=== PATIENT | female | born 1980 | race Hispanic/Latino ===

== ENCOUNTER 2017-02-03 15:18 | Inpatient (IN) | payer BC ==
--- NOTE | 2017-02-03 16:53 | ED PDOC ---
Arrival/HPI - General Chief Complaint: Medical Clearance Time Seen by Provider: 02/03/17 16:44 - History of Present Illness Narrative History of Present Illness (Text): 02/03/17 16:50 36-year-old female with a history of alcohol use, presents emergency department stating that she may be going into alcohol withdrawal. Patient states that she has upper extremity tremors. States that she usually takes Librium for her symptoms, but she has not taking any Librium for this episode. Patient states her last drink was early this morning. Denies any suicidal or homicidal ideations. Denies any other complaints. Past Medical History - Provider Review Nursing Documentation Reviewed: Yes - Infectious Disease Hx of Infectious Diseases: None - Reproductive Menopause: No - Cardiac Hx Hypertension: Yes - Psychiatric Hx Substance Use: Yes - Anesthesia Hx Anesthesia: Yes Hx Anesthesia Reactions: No Family/Social History Family/Social History: Unknown Family HX Smoking Status: Current Some Days Smoker Hx Alcohol Use: Yes Frequency of alcohol use: Daily Hx Substance Use: Yes Substance used: cocaine Allergies/Home Meds Allergies/Adverse Reactions: Allergies No Known Allergies Allergy (Verified 02/03/17 16:31) Home Medications: Home Meds Medication Instructions Recorded Confirmed ALPRAZolam [Xanax] 1 mg PO BID 02/03/17 02/03/17 Desvenlafaxine Succinate [Pristiq] 50 mg PO DAILY 02/03/17 02/03/17 Hctz 25 25 mg PO DAILY 02/03/17 02/03/17 Physical Exam - Physical Exam Narrative Physical Exam (Text): - Review of Systems Constitutional: Normal. absent: Fatigue, Weight Change, Fevers Eyes: Normal ENT: denies sore throat, denies tristhmus Respiratory: Normal. absent: SOB, Cough, Sputum Cardiovascular: absent: Chest Pain, Palpitations, Syncope Gastrointestinal: Normal. absent: Abdominal Pain, Diarrhea, Nausea, Vomiting Genitourinary: Normal. absent: Dysuria, Frequency, Hematuria, vaginal bleeding Musculoskeletal: Normal. absent: Arthralgias, Back Pain, Neck Pain Skin: no rashes, no erythema Neurological: absent: Focal Weakness Endocrine: Normal Hemo/Lymphatic: Normal Psychiatric: Possible withdrawal. No suicidal or homicidal ideations Physical exam Patient appears age appropriate in no distress, speaking full sentences without difficulty - Systems Exam Head: Present: Atraumatic, Normocephalic Pupils: Present: PERRL Extroacular Muscles: Present: EOMI Conjunctiva: Present: Normal Mouth: Present: Moist Mucous Membranes Neck: Present: Normal Range of Motion. No: MIDLINE TENDERNESS, Paraspinal Tenderness Respiratory/Chest: Present: Clear to Auscultation, Good Air Exchange. No: Respiratory Distress, Accessory Muscle Use, Tachypneic Cardiovascular: Present: Regular Rate and Rhythm, Normal S1, S2, Peripheal Pulses Present. No: Murmurs Abdomen: Present: Normal Bowel Sounds. No: Tenderness, Distention, Peritoneal Signs, Rebound, Guarding Back: Present: Normal Inspection. No: Midline Tenderness, Paraspinal Tenderness Upper Extremity: Present: Bilateral upper extremity tremors. No: Cyanosis, Edema Lower Extremity: Present: Normal Inspection. No: Edema Neurological: Present: GCS=15, Speech Normal, cranial nerves II through XII fully intact with no cerebellar abnormality, neurosensory fully intact. No focal neurological deficits. Skin: Present: Warm, Dry, Normal Color. No: Rashes Lymphatic: Present: OX3, NI, NC Psychiatric: Present: Alert, Oriented x 3, Normal Insight, Normal Concentration Vital Signs Reviewed: Yes Vital Signs Temp Pulse Resp BP Pulse Ox 02/03/17 16:26 98.7 F 112 H 20 162/94 H 99 Temperature: Afebrile Blood Pressure: Hypertensive Pulse: Tachycardic Respiratory Rate: Normal Appearance: Positive for: Non-Toxic, Comfortable Pain Distress: None Mental Status: Positive for: Alert and Oriented X 3 Medical Decision Making ED Course and Treatment: 02/03/17 16:52 36-year-old female presents the ER with alcohol withdrawal symptoms. On examination, patient is tremulous, tachycardic, hypertensive. Ativan and banana bag ordered. 02/03/17 17:[address] Arevalo, agrees with remote tele admission for alcohol withdrawal pt aware of and agrees with plan EKG interpreted by ER physician. Sinus tach. No ST-segment elevations. Normal intervals. - Medication Orders Current Medication Orders: Folic Acid 1 mg/ Thiamine HCl 100 mg/ Multivitamins/Vitamin C 10 ml/ Dextrose 1 ,011.2 mls @ 500 mls/hr IV .Q2H2M JOSEE Discontinued Medications Lorazepam (Ativan) 2 mg IVP ONCE ONE Stop: 02/03/17 16:47 Disposition/Present on Arrival - Present on Arrival Any Indicators Present on Arrival: No History of DVT/PE: No History of Uncontrolled Diabetes: No Urinary Catheter: No History of Decub. Ulcer: No History Surgical Site Infection Following: None - Disposition Have Diagnosis and Disposition been Completed?: Yes Diagnosis: Alcohol withdrawal Disposition: HOSPITALIZED Disposition Time: 17:04 Patient Plan: Admission Condition: FAIR
[2017-02-03] MEDS ORDERED: Folic Acid 1 MG, Thiamine 100 MG, Multivitamin (MVI) 10 ML in Dextrose 5% In Water 1,00... IV SCH (17:00)
[2017-02-03 18:01] LABS: ADD MANUAL DIFF? NO; BASO # 0.06 K/mm3 (0.0-2.0); BASO % 0.7 % (0.0-3.0); EOS # 0.1 (0.0-0.7); EOS % 0.7 % (1.5-5.0); GRAN # 6.42 (1.4-6.5); GRAN % 70.3 % (50.0-68.0); HEMATOCRIT 37.8 % (36.0-48.0); LYMPH # 1.9 (1.2-3.4); LYMPH % 20.7 % (22.0-35.0); MEAN CELL VOLUME 89.2 fL (80.0-105.0); MEAN CORPUSCULAR HEMOGLOBIN 31.1 pg (25.0-35.0); MEAN CORPUSCULAR HGB CONC 34.9 g/dl (31.0-37.0); MEAN PLATELET VOLUME 9.1 fl (7.0-11.0); MONO # 0.7 (0.1-0.6); MONO % 7.6 % (1.0-6.0); PLATELET COUNT 257 10^3/uL (120.0-450.0); RED CELL DISTRIBUTION WIDTH 14.5 % (11.5-14.5); WHITE BLOOD COUNT 9.1 10^3/ul (4.5-11.0)
[2017-02-03 18:08] LABS: ALB/GLOB RATIO 1.1 (1.1-1.8); ALKALINE PHOSPHATASE 77 U/L (38-133); ALT/SGPT 44 U/L (7-56); AST/SGOT 59 U/L (15-39); BILIRUBIN,TOTAL 0.8 mg/dL (0.2-1.3); BLOOD UREA NITROGEN 9 mg/dL (7-21); CALCIUM 9.9 mg/dL (8.4-10.5); CARBON DIOXIDE 24 mmol/L (21-33); CHLORIDE 101 mmol/L (98-107); GFR AFRICAN-AMERICAN > 60; GLUCOSE,RANDOM 62 mg/dL (70-110); POTASSIUM 4.5 mmol/L (3.6-5.0); SODIUM 137 mmol/L (132-148); TOTAL PROTEIN 8.9 g/dL (5.8-8.3)
--- NOTE | 2017-02-03 19:05 | CP.PCM.HP ---
<Leonard Dominguez - Last Filed: 02/03/17 18:59> History of Present Illness - History of Present Illness History of Present Illness: CC: Alcohol withdrawals HPI: Patient is a 36 y/o F wtih PMHX of HTN, HLD, and depression who presents with complaint of alcohol withdrawals. She states she had her last drink this morning and has recently been drinking a case of beer a days. She says in the past she has had withdrawals and was hospitalized somewhere in [place] but denies any seizures. She states she tried weaning herself and was prescribed librium in the past by her PMD. She reports upper extremity shakes, light headedness, headache, nausea, but no vomiting or seizures. She self reports past cocaine use. PMD: Mari[facility] Past medical hx: htn, hld, depression Past surgical hx: appendix, LEEP Family hx: denies Social hx: lives alone, case of beer daily, cocaine use, pack a day smoker allergies: KNDA Meds: Pristiq 50mg HCTZ 25mg Simvastatin Present on Admission - Present on Admission Any Indicators Present on Admission: No Review of Systems - Constitutional Constitutional: Chills, Headache. absent: Fever - EENT Eyes: absent: Change in Vision Ears: absent: Decreased Hearing Nose/Mouth/Throat: absent: Dysphagia - Cardiovascular Cardiovascular: absent: Chest Pain, Dyspnea, Edema, Palpitations - Respiratory Respiratory: absent: Cough, Dyspnea - Gastrointestinal Gastrointestinal: Nausea. absent: Abdominal Pain, Cramping, Diarrhea, Vomiting - Genitourinary Genitourinary: absent: Dysuria - Musculoskeletal Musculoskeletal: absent: Muscle Weakness, Numbness, Tingling - Integumentary Integumentary: absent: Lesions, Rash, Wounds - Neurological Neurological: Abnormal Movements, Disequilibrium, Headaches - Psychiatric Psychiatric: Depression. absent: Anxiety, Suicidal Ideation - Endocrine Endocrine: Flushing. absent: Fatigue, Palpitations Past Patient History - Infectious Disease Hx of Infectious Diseases: None - Past Social History Smoking Status: Light Smoker < 10 Cigarettes Daily Alcohol: > 2 Drinks/Day Drugs: Cocaine Home Situation {Lives}: Alone - CARDIAC Hx Hypertension: Yes - PSYCHIATRIC Hx Substance Use: Yes - ANESTHESIA Hx Anesthesia: Yes Hx Anesthesia Reactions: No Meds Allergies/Adverse Reactions: Allergies Allergy/AdvReac Type Severity Reaction Status Date / Time No Known Allergies Allergy Verified 02/03/17 16:31 Physical Exam - Constitutional Appears: Older Than Stated Age, Agitated - Head Exam Head Exam: ATRAUMATIC, NORMOCEPHALIC - Eye Exam Eye Exam: Conjunctival injection, EOMI, Normal appearance, PERRL Pupil Exam: NORMAL ACCOMODATION, PERRL - ENT Exam ENT Exam: Mucous Membranes Moist, Normal Oropharynx - Respiratory Exam Respiratory Exam: Clear to Auscultation Bilateral, NORMAL BREATHING PATTERN. absent: Decreased Breath Sounds, Rhonchi, Wheezes - Cardiovascular Exam Cardiovascular Exam: Tachycardia, +S1, +S2. absent: Gallop, Rubs, Systolic Murmur - GI/Abdominal Exam GI & Abdominal Exam: Normal Bowel Sounds, Soft. absent: Guarding, Tenderness - Rectal Exam Rectal Exam: Deferred - Extremities Exam Extremities exam: Positive for: normal capillary refill, normal inspection, pedal pulses present. Negative for: pedal edema, tenderness Additional comments: aterixis - Back Exam Back exam: NORMAL INSPECTION. absent: rash noted, tenderness - Neurological Exam Neurological exam: Alert, CN II-XII Intact, Oriented x3, Reflexes Normal Additional comments: asterixis - Psychiatric Exam Psychiatric exam: Agitated, Anxious - Skin Skin Exam: Diaphoretic, Intact, Warm Results - Vital Signs Recent Vital Signs: Last Vital Signs Temp 98.7 F 02/03/17 16:26 Pulse 97 H 02/03/17 18:36 Resp 16 02/03/17 18:36 BP 136/96 H 02/03/17 18:03 Pulse Ox 96 02/03/17 18:36 - Labs Result Diagrams: 02/03/17 17:48 02/03/17 17:48 Labs: Laboratory Results - last 24 hr 02/03/17 17:48 WBC 9.1 RBC 4.24 Hgb 13.2 Hct 37.8 MCV 89.2 MCH 31.1 MCHC 34.9 RDW 14.5 Plt Count 257 MPV 9.1 Gran % 70.3 H Lymph % (Auto) 20.7 L [place] % (Auto) 7.6 H Eos % (Auto) 0.7 L Baso % (Auto) 0.7 Gran # 6.42 Lymph # 1.9 [place] # 0.7 H Eos # 0.1 Baso # 0.06 Sodium 137 Potassium 4.5 Chloride 101 Carbon Dioxide 24 Anion Gap 17 BUN 9 Creatinine 0.6 Est GFR ( Amer) > 60 Est GFR (Non-Af Amer) > 60 Random Glucose 62 L Calcium 9.9 Total Bilirubin 0.8 AST 59 H ALT 44 Alkaline Phosphatase 77 Total Protein 8.9 H Albumin 4.7 Globulin 4.2 Albumin/Globulin Ratio 1.1 Assessment & Plan - Assessment and Plan (Free Text) Assessment: 36 y/o F with PMHX of HTN, HLD, depression, and substance abuse presents with alcohol withdrawal symptoms. Plan: 1) Alcohol withdrawal * Start Libirum 25 mg Q8H * Ativan 2mg Q4H * Banana bag * PO multivitamin, thiamine, folic acid * ciwaa protocol * seizure precautions * fall precautions * advised on importance of cesssation 2) Hx of HTN * Hold HCTZ due to dehydration * heart healthy diet 3) Hx of HLD * Hold PO Statin 4) Hx of Depression * continue home Pristiq * assymptomatic at this time 5) Substance abuse * advised on importance of cessation * Nicotine patch TD 6) PPX: * Zofran * Protonix * Tylenol * SCD's Assessment and plan discussed with attending physician. <Irina GUILLAUME,Sherrill - Last Filed: 02/04/17 17:21> Results - Vital Signs Recent Vital Signs: Last Vital Signs Temp 98.1 F 02/04/17 06:00 Pulse 90 02/04/17 14:00 Resp 19 02/04/17 06:00 BP 132/91 H 02/04/17 11:30 Pulse Ox 99 02/04/17 06:00 - Labs Result Diagrams: 02/04/17 06:15 02/04/17 06:15 Labs: Laboratory Results - last 24 hr 02/03/17 02/04/17 17:48 06:15 WBC 9.1 7.7 RBC 4.24 4.04 Hgb 13.2 12.4 Hct 37.8 36.4 MCV 89.2 90.1 MCH 31.1 30.7 MCHC 34.9 34.1 RDW 14.5 14.3 Plt Count 257 246 MPV 9.1 9.3 Gran % 70.3 H 57.1 Lymph % (Auto) 20.7 L 31.3 [place] % (Auto) 7.6 H 8.4 H Eos % (Auto) 0.7 L 2.7 Baso % (Auto) 0.7 0.5 Gran # 6.42 4.42 Lymph # 1.9 2.4 [place] # 0.7 H 0.7 H Eos # 0.1 0.2 Baso # 0.06 0.04 Sodium 137 137 Potassium 4.5 3.5 L Chloride 101 103 Carbon Dioxide 24 26 Anion Gap 17 12 BUN 9 10 Creatinine 0.6 0.6 Est GFR ( Amer) > 60 > 60 Est GFR (Non-Af Amer) > 60 > 60 Random Glucose 62 L 120 H Hemoglobin A1c 5.5 Calcium 9.9 9.1 Total Bilirubin 0.8 0.9 AST 59 H 50 H ALT 44 41 Alkaline Phosphatase 77 55 Total Protein 8.9 H 7.4 Albumin 4.7 3.9 Globulin 4.2 3.5 Albumin/Globulin Ratio 1.1 1.1 TSH 3rd Generation 1.2 Attending/Attestation - Attestation I have personally seen and examined this patient.: Yes I have fully participated in the care of the patient.: Yes I have reviewed all pertinent clinical information: Yes Notes (Text): Patient was seen and examined with general medical practitioner .Agreed with resident assessment and plan. 36 yrs F wtih PMHX of HTN, HLD, and depression is admitted with alcohol withdrawal.Patient will be admitted in the hospital, we will start patient on IV hydration, thiamine.folic acid .We will monitor patient with ROMY Protocoal. The issue of ongoing alcohol abuse was discussed in detail with patient. Management plan was discussed in detail with patient Education was provided.
--- NOTE | 2017-02-03 21:35 | CARD ---
APPROVED REPORT EKG Measurement Heart [id number] <Conclusion> Normal sinus rhythm Right atrial enlargement Borderline ECG
[2017-02-03] MEDS: Folic Acid 1 MG, Thiamine 100 MG, Multivitamin (MVI) 10 ML in Dextrose 5% In Water 1,00... IV SCH (22:26)
[2017-02-04] MEDS: Folic Acid 1 MG, Thiamine 100 MG, Multivitamin (MVI) 10 ML in Dextrose 5% In Water 1,00... IV SCH ×2 (05:07→13:56)
[2017-02-04 06:46] LABS: ADD MANUAL DIFF? NO
[2017-02-04 06:55] LABS: BASO # 0.04 K/mm3 (0.0-2.0); BASO % 0.5 % (0.0-3.0); EOS # 0.2 (0.0-0.7); EOS % 2.7 % (1.5-5.0); GRAN # 4.42 (1.4-6.5); GRAN % 57.1 % (50.0-68.0); HEMATOCRIT 36.4 % (36.0-48.0); LYMPH # 2.4 (1.2-3.4); LYMPH % 31.3 % (22.0-35.0); MEAN CELL VOLUME 90.1 fL (80.0-105.0); MEAN CORPUSCULAR HEMOGLOBIN 30.7 pg (25.0-35.0); MEAN CORPUSCULAR HGB CONC 34.1 g/dl (31.0-37.0); MEAN PLATELET VOLUME 9.3 fl (7.0-11.0); MONO # 0.7 (0.1-0.6); MONO % 8.4 % (1.0-6.0); PLATELET COUNT 246 10^3/uL (120.0-450.0); RED CELL DISTRIBUTION WIDTH 14.3 % (11.5-14.5); WHITE BLOOD COUNT 7.7 10^3/ul (4.5-11.0)
[2017-02-04 07:19] LABS: ALB/GLOB RATIO 1.1 (1.1-1.8); ALKALINE PHOSPHATASE 55 U/L (38-133); ALT/SGPT 41 U/L (7-56); AST/SGOT 50 U/L (15-39); BILIRUBIN,TOTAL 0.9 mg/dL (0.2-1.3); BLOOD UREA NITROGEN 10 mg/dL (7-21); CALCIUM 9.1 mg/dL (8.4-10.5); CARBON DIOXIDE 26 mmol/L (21-33); CHLORIDE 103 mmol/L (98-107); GFR AFRICAN-AMERICAN > 60; GLUCOSE,RANDOM 120 mg/dL (70-110); POTASSIUM 3.5 mmol/L (3.6-5.0); SODIUM 137 mmol/L (132-148); TOTAL PROTEIN 7.4 g/dL (5.8-8.3)
[2017-02-04] MEDS ORDERED: Potassium Chloride 40 mEq/30 ml LIQ UD PO ONE (07:35)
[2017-02-04 08:46] VITALS: RESP 19; TEMP 98.1; O2SAT 99
[2017-02-04] MEDS ORDERED: Multivitamin With Minerals Tab PO SCH (10:00)
[2017-02-04] MEDS ORDERED: Pantoprazole 40 mg EC Tab PO SCH (10:00)
[2017-02-04] MEDS ORDERED: DESVENLAFAXINE SUCCINATE 50 MG PO SCH (10:00)
[2017-02-04 13:00] VITALS: BP 132/91
[2017-02-04 15:47] VITALS: PULSE 90
--- NOTE | 2017-02-04 16:51 | CP.PCM.PN ---
<Leonard Dominguez - Last Filed: 02/04/17 16:46> Subjective - Date & Time of Evaluation Date of Evaluation: 02/04/17 Time of Evaluation: 09:00 - Subjective Subjective: Dr. Dominguez PGY 1 Hospitalist Note Patient seen and evaluated at bedside. She is resting comfortably with family present. She denies any chest pain, SOb, nausea, vomiting, diarrhea, or dysuria. She reports her withdrawal symptoms are improving. She is somnolent however responsive. Per nursing, no adverse events over night. Objective - Vital Signs/Intake and Output Vital Signs (last 24 hours): Temp Pulse Resp BP Pulse Ox 98.1 F 90 19 132/91 H 99 02/04/17 06:00 02/04/17 14:00 02/04/17 06:00 02/04/17 11:30 02/04/17 06:00 Intake and Output: 02/04/17 02/04/17 06:59 18:59 Intake Total 120 480 Balance 120 480 - Medications Medications: Current Medications Acetaminophen (Tylenol 325mg Tab) 650 mg PO Q6 PRN PRN Reason: Fever >100.4 F Chlordiazepoxide (Librium) 10 mg PO Q8 JOSEE PRN Reason: Protocol Last Admin: 02/04/17 13:54 Dose: 10 mg Clonidine HCl (Catapres) 0.1 mg PO BID PRN PRN Reason: Systolic Blood Pressure Last Admin: 02/04/17 10:11 Dose: 0.1 mg Folic Acid (Folic Acid) 1 mg PO DAILY [facility] Last Admin: 02/04/17 09:58 Dose: 1 mg Folic Acid 1 mg/ Thiamine HCl 100 mg/ Multivitamins/Vitamin C 10 ml/ Dextrose 1 ,011.2 mls @ 100 mls/hr IV .Q10H7M [facility] Last Admin: 02/04/17 13:56 Dose: 100 mls/hr Ibuprofen (Motrin Tab) 400 mg PO Q6 PRN PRN Reason: Pain, Mild (1-3) Lorazepam (Ativan) 2 mg IVP Q4H PRN; Protocol PRN Reason: Symptoms of alcohol withdrawl Last Admin: 02/04/17 06:45 Dose: 2 mg Multivitamins/Minerals (Therapeutic-M Tab) 1 tab PO DAILY [facility] Last Admin: 02/04/17 09:58 Dose: 1 tab Nicotine (Nicoderm Cq) 1 patch TD DAILY [facility] Last Admin: 02/04/17 09:59 Dose: Not Given Non-Formulary Medication (Desvenlafaxine Succinate [Pristiq]) 50 mg PO DAILY [facility] Last Admin: 02/04/17 10:11 Dose: Not Given Ondansetron HCl (Zofran Inj) 4 mg IVP Q6 PRN PRN Reason: Nausea/Vomiting Pantoprazole Sodium (Protonix Ec Tab) 40 mg PO DAILY [facility] Last Admin: 02/04/17 09:58 Dose: 40 mg Thiamine HCl (Vitamin B1 Tab) 100 mg PO DAILY [facility] Last Admin: 02/04/17 09:58 Dose: 100 mg - Labs Labs: 02/04/17 06:15 02/04/17 06:15 - Constitutional Appears: Non-toxic, No Acute Distress - Head Exam Head Exam: ATRAUMATIC, NORMAL INSPECTION, NORMOCEPHALIC - Eye Exam Eye Exam: Conjunctival injection, EOMI, PERRL Pupil Exam: NORMAL ACCOMODATION, PERRL - ENT Exam ENT Exam: Mucous Membranes Moist - Neck Exam Neck Exam: Full ROM, Normal Inspection - Respiratory Exam Respiratory Exam: Clear to Ausculation Bilateral, NORMAL BREATHING PATTERN. absent: Rales, Rhonchi, Wheezes - Cardiovascular Exam Cardiovascular Exam: REGULAR RHYTHM, +S1, +S2. absent: Gallop, Rubs, Murmur - GI/Abdominal Exam GI & Abdominal Exam: Soft, Normal Bowel Sounds. absent: Tenderness - Extremities Exam Extremities Exam: Normal Capillary Refill, Normal Inspection. absent: Pedal Edema, Tenderness - Back Exam Back Exam: NORMAL INSPECTION. absent: rash noted, tenderness - Neurological Exam Neurological Exam: Alert, Awake, CN II-XII Intact, Oriented x3 Additional comments: slight asterixis somnolent - Psychiatric Exam Psychiatric exam: Flat Affect - Skin Skin Exam: Dry, Intact, Warm Assessment and Plan - Assessment and Plan (Free Text) Assessment: 36 y/o F with PMHX of HTN, HLD, depression, and substance abuse presents with alcohol withdrawal symptoms. Plan: 1) Alcohol withdrawal * Decrease Libirum to 10 mg Q8H * Ativan 2mg Q4H * Banana bag * PO multivitamin, thiamine, folic acid * ciwaa protocol * seizure precautions * fall precautions * advised on importance of cesssation 2) Hx of HTN * Hold HCTZ due to dehydration * Clonidine prn elevated BP * heart healthy diet 3) Hx of HLD * Hold PO Statin 4) Hx of Depression * continue home Pristiq * assymptomatic at this time 5) Substance abuse * advised on importance of cessation * Nicotine patch TD 6)electrolyte imbalance * potassium low this morning * replenish as needed * f/u repeat in AM 7) PPX: * Zofran * Protonix * Tylenol * SCD's Assessment and plan discussed with attending physician. <Irina GUILLAUME,Sherrill - Last Filed: 02/04/17 17:24> Objective - Vital Signs/Intake and Output Vital Signs (last 24 hours): Temp Pulse Resp BP Pulse Ox 98.1 F 90 19 132/91 H 99 02/04/17 06:00 02/04/17 14:00 02/04/17 06:00 02/04/17 11:30 02/04/17 06:00 Intake and Output: 02/04/17 02/04/17 06:59 18:59 Intake Total 120 480 Balance 120 480 - Labs Labs: 02/04/17 06:15 02/04/17 06:15 Attending/Attestation - Attestation I have personally seen and examined this patient.: Yes I have fully participated in the care of the patient.: Yes I have reviewed all pertinent clinical information, including history, physical exam and plan: Yes Notes (Text): Patient alcohol withdrawal were improving this morning , was feeling better, however this afternoon she was anxious, and left the hospital with out signing against medical advice.She was alert,awake and oriented.She is considered as discharge against medical advice.
--- NOTE | 2017-02-04 17:11 | CP.PCM.DIS ---
<Leonard Dominguez - Last Filed: 02/04/17 17:04> Provider - Provider Date of Admission: 02/03/17 17:04 Attending physician: Sherrill Arevalo MD Time Spent in preparation of Discharge (in minutes): 45 Hospital Course - Lab Results Lab Results: Most Recent Lab Values WBC 7.7 10^3/ul (4.5-11.0) 02/04/17 06:15 RBC 4.04 10^6/uL (3.5-6.1) 02/04/17 06:15 Hgb 12.4 gm/dL (12.0-16.0) 02/04/17 06:15 Hct 36.4 % (36.0-48.0) 02/04/17 06:15 MCV 90.1 fL (80.0-105.0) 02/04/17 06:15 MCH 30.7 pg (25.0-35.0) 02/04/17 06:15 MCHC 34.1 g/dl (31.0-37.0) 02/04/17 06:15 RDW 14.3 % (11.5-14.5) 02/04/17 06:15 Plt Count 246 10^3/uL (120.0-450.0) 02/04/17 06:15 MPV 9.3 fl (7.0-11.0) 02/04/17 06:15 Gran % 57.1 % (50.0-68.0) 02/04/17 06:15 Lymph % (Auto) 31.3 % (22.0-35.0) 02/04/17 06:15 [place] % (Auto) 8.4 % (1.0-6.0) H 02/04/17 06:15 Eos % (Auto) 2.7 % (1.5-5.0) 02/04/17 06:15 Baso % (Auto) 0.5 % (0.0-3.0) 02/04/17 06:15 Gran # 4.42 (1.4-6.5) 02/04/17 06:15 Lymph # 2.4 (1.2-3.4) 02/04/17 06:15 [place] # 0.7 (0.1-0.6) H 02/04/17 06:15 Eos # 0.2 (0.0-0.7) 02/04/17 06:15 Baso # 0.04 K/mm3 (0.0-2.0) 02/04/17 06:15 Sodium 137 mmol/L (132-148) 02/04/17 06:15 Potassium 3.5 mmol/L (3.6-5.0) L 02/04/17 06:15 Chloride 103 mmol/L (98-107) 02/04/17 06:15 Carbon Dioxide 26 mmol/L (21-33) 02/04/17 06:15 Anion Gap 12 (10-20) 02/04/17 06:15 BUN 10 mg/dL (7-21) 02/04/17 06:15 Creatinine 0.6 mg/dL (0.5-1.4) 02/04/17 06:15 Est GFR ( Amer) > 60 02/04/17 06:15 Est GFR (Non-Af Amer) > 60 02/04/17 06:15 Random Glucose 120 mg/dL (70-110) H 02/04/17 06:15 Hemoglobin A1c 5.5 % (4.2-6.5) 02/04/17 06:15 Calcium 9.1 mg/dL (8.4-10.5) 02/04/17 06:15 Total Bilirubin 0.9 mg/dL (0.2-1.3) 02/04/17 06:15 AST 50 U/L (15-39) H 02/04/17 06:15 ALT 41 U/L (7-56) 02/04/17 06:15 Alkaline Phosphatase 55 U/L (38-133) 02/04/17 06:15 Total Protein 7.4 g/dL (5.8-8.3) 02/04/17 06:15 Albumin 3.9 g/dL (3.0-4.8) 02/04/17 06:15 Globulin 3.5 gm/dL 02/04/17 06:15 Albumin/Globulin Ratio 1.1 (1.1-1.8) 02/04/17 06:15 TSH 3rd Generation 1.2 MIU/ml (0.46-4.68) 02/04/17 06:15 - Hospital Course Hospital Course: HPI: Patient is a 36 y/o F wtih PMHX of HTN, HLD, and depression who presents with complaint of alcohol withdrawals. She states she had her last drink this morning and has recently been drinking a case of beer a days. She says in the past she has had withdrawals and was hospitalized somewhere in [place] but denies any seizures. She states she tried weaning herself and was prescribed librium in the past by her PMD. She reports upper extremity shakes, light headedness, headache, nausea, but no vomiting or seizures. She self reports past cocaine use. Patient is a 36 y/o F who presented with alcohol withdrawals. The patient was admitted to the hospital and started on Librium and ativan taper. She remained overnight and was somnolent throughout the morning. PAtient was evaluated this morning and progress note written. In the evening, nurse paged to report patient was agitated and was pulling her IV line out and demanding to leave to smoke a cigarette, got dressed, and left before signing out AMA. Patient eloped from medical floor. This is a brief summary of the patient's stay at this facility. For more detail , see patient's full chart. Physical exam as corresponds with morning examination. - Date & Time of H&P Date of H&P: 02/03/17 Time of H&P: 18:59 Discharge Exam - Head Exam Head Exam: ATRAUMATIC, NORMAL INSPECTION, NORMOCEPHALIC - Eye Exam Eye Exam: Conjunctival injection, EOMI, PERRL Pupil Exam: NORMAL ACCOMODATION, PERRL - ENT Exam ENT Exam: Mucous Membranes Moist. absent: Normal Oropharynx (poor dentition) - Respiratory Exam Respiratory Exam: Clear to PA & Lateral, NORMAL BREATHING PATTERN. absent: Rales, Rhonchi, Wheezes - Cardiovascular Exam Cardiovascular Exam: REGULAR RHYTHM, +S1, +S2. absent: Gallop, Rubs, Systolic Murmur - GI/Abdominal Exam GI & Abdominal Exam: Normal Bowel Sounds, Soft. absent: Tenderness - Extremities Exam Extremities exam: normal capillary refill, normal inspection, pedal pulses present - Back Exam Back exam: NORMAL INSPECTION. absent: rash noted, tenderness - Neurological Exam Neurological exam: Alert, CN II-XII Intact, Oriented x3 - Psychiatric Exam Psychiatric exam: Flat Affect - Skin Skin Exam: Dry, Intact, Warm Discharge Plan - Follow Up Plan Condition: GOOD Disposition: AGAINST MEDICAL ADVICE <Irina GUILLAUME,Sherrill - Last Filed: 02/04/17 17:25> Provider - Provider Date of Admission: 02/03/17 17:04 Attending physician: Sherrill Arevalo MD Hospital Course - Lab Results Lab Results: Most Recent Lab Values WBC 7.7 10^3/ul (4.5-11.0) 02/04/17 06:15 RBC 4.04 10^6/uL (3.5-6.1) 02/04/17 06:15 Hgb 12.4 gm/dL (12.0-16.0) 02/04/17 06:15 Hct 36.4 % (36.0-48.0) 02/04/17 06:15 MCV 90.1 fL (80.0-105.0) 02/04/17 06:15 MCH 30.7 pg (25.0-35.0) 02/04/17 06:15 MCHC 34.1 g/dl (31.0-37.0) 02/04/17 06:15 RDW 14.3 % (11.5-14.5) 02/04/17 06:15 Plt Count 246 10^3/uL (120.0-450.0) 02/04/17 06:15 MPV 9.3 fl (7.0-11.0) 02/04/17 06:15 Gran % 57.1 % (50.0-68.0) 02/04/17 06:15 Lymph % (Auto) 31.3 % (22.0-35.0) 02/04/17 06:15 [place] % (Auto) 8.4 % (1.0-6.0) H 02/04/17 06:15 Eos % (Auto) 2.7 % (1.5-5.0) 02/04/17 06:15 Baso % (Auto) 0.5 % (0.0-3.0) 02/04/17 06:15 Gran # 4.42 (1.4-6.5) 02/04/17 06:15 Lymph # 2.4 (1.2-3.4) 02/04/17 06:15 [place] # 0.7 (0.1-0.6) H 02/04/17 06:15 Eos # 0.2 (0.0-0.7) 02/04/17 06:15 Baso # 0.04 K/mm3 (0.0-2.0) 02/04/17 06:15 Sodium 137 mmol/L (132-148) 02/04/17 06:15 Potassium 3.5 mmol/L (3.6-5.0) L 02/04/17 06:15 Chloride 103 mmol/L (98-107) 02/04/17 06:15 Carbon Dioxide 26 mmol/L (21-33) 02/04/17 06:15 Anion Gap 12 (10-20) 02/04/17 06:15 BUN 10 mg/dL (7-21) 02/04/17 06:15 Creatinine 0.6 mg/dL (0.5-1.4) 02/04/17 06:15 Est GFR ( Amer) > 60 02/04/17 06:15 Est GFR (Non-Af Amer) > 60 02/04/17 06:15 Random Glucose 120 mg/dL (70-110) H 02/04/17 06:15 Hemoglobin A1c 5.5 % (4.2-6.5) 02/04/17 06:15 Calcium 9.1 mg/dL (8.4-10.5) 02/04/17 06:15 Total Bilirubin 0.9 mg/dL (0.2-1.3) 02/04/17 06:15 AST 50 U/L (15-39) H 02/04/17 06:15 ALT 41 U/L (7-56) 02/04/17 06:15 Alkaline Phosphatase 55 U/L (38-133) 02/04/17 06:15 Total Protein 7.4 g/dL (5.8-8.3) 02/04/17 06:15 Albumin 3.9 g/dL (3.0-4.8) 02/04/17 06:15 Globulin 3.5 gm/dL 02/04/17 06:15 Albumin/Globulin Ratio 1.1 (1.1-1.8) 02/04/17 06:15 TSH 3rd Generation 1.2 MIU/ml (0.46-4.68) 02/04/17 06:15 Attending/Attestation - Attestation I have personally seen and examined this patient.: Yes I have fully participated in the care of the patient.: Yes I have reviewed all pertinent clinical information, including history, physical exam and plan: Yes Notes (Text): Patient alcohol withdrawal were improving this morning , was feeling better, however this afternoon she was anxious, and left the hospital with out signing against medical advice.She was alert,awake and oriented.She is considered as discharge against medical advice.
== END 2017-02-04 17:20 | disposition left against medical advice (07) | DRG 894 ==
LOC: ED 15:18 → ERH 17:04 → 3RSO 19:23
PROVIDERS: ADMIT Internal Medicine; ATTEND Internal Medicine
DX: F10.239 Alcohol dependence with withdrawal, unspecified (principal); I10 Essential (primary) hypertension; E78.5 Hyperlipidemia, unspecified; F17.210 Nicotine dependence, cigarettes, uncomplicated; F14.90 Cocaine use, unspecified, uncomplicated; R40.2412 Glasgow coma scale score 13-15, at arrival to emergency department; F32.89 Other specified depressive episodes; E86.0 Dehydration; R27.8 Other lack of coordination; E87.6 Hypokalemia

== ENCOUNTER 2017-02-04 17:50 | Emergency (ER) | payer BC ==
[2017-02-04 18:17] VITALS: BMI 23.0
[2017-02-04 18:36] VITALS: BP 136/107; PULSE 108; RESP 18; O2SAT 100
--- NOTE | 2017-02-04 18:45 | ED PDOC ---
Arrival/HPI - General Chief Complaint: Alcohol Ingestion Time Seen by Provider: 02/04/17 18:22 Historian: Patient - History of Present Illness Narrative History of Present Illness (Text): 02/04/17 18:39 36yo female with PMhx of hypertension, anxiety, alcohol abuse who present to ED for readmission. States shew as admitted her yesterday for alcohol withdrawal and she sign out AMA 15minutes [employer]. She denies any somatic complaint in ED. Past Medical History - Provider Review Nursing Documentation Reviewed: Yes - Infectious Disease Hx of Infectious Diseases: None - Cardiac Hx Hypertension: Yes - Pulmonary Other/Comment: smoker - Musculoskeletal/Rheumatological Hx Falls: No - Psychiatric Hx Substance Use: Yes Other/Comment: substance abuse; cocaine - Anesthesia Hx Anesthesia: Yes Hx Anesthesia Reactions: No Family/Social History - Physician Review Nursing Documentation Reviewed: Yes Family/Social History: Unknown Family HX Smoking Status: Current Some Days Smoker Hx Alcohol Use: Yes (last drink at 4am on 02/03/17) Hx Substance Use: Yes Substance used: cocaine Allergies/Home Meds Allergies/Adverse Reactions: Allergies No Known Allergies Allergy (Verified 02/04/17 18:17) Home Medications: Home Meds Medication Instructions Recorded Confirmed ALPRAZolam [Xanax] 1 mg PO BID 02/03/17 02/04/17 Desvenlafaxine Succinate [Pristiq] 50 mg PO DAILY 02/03/17 02/04/17 hydroCHLOROthiazide [Hydrodiuril] 25 mg PO DAILY 02/04/17 02/04/17 Review of Systems - Physician Review All systems were reviewed & negative as marked: Yes - Review of Systems Constitutional: Normal, Other (???Alcohol withdrawl) Eyes: Normal ENT: Normal Respiratory: Normal Cardiovascular: Normal Gastrointestinal: Normal Genitourinary Female: Normal Musculoskeletal: Normal Skin: Normal Neurological: Normal Endocrine: Normal Hemo/Lymphatic: Normal Psychiatric: Normal Physical Exam Vital Signs Reviewed: Yes Vital Signs Pulse Resp BP Pulse Ox 02/04/17 18:36 108 H 18 136/107 H 100 02/04/17 17:58 84 17 163/109 H 98 Temperature: Afebrile Blood Pressure: Hypertensive Pulse: Regular Respiratory Rate: Normal Appearance: Positive for: Well-Appearing, Non-Toxic, Comfortable Pain Distress: None Mental Status: Positive for: Alert and Oriented X 3 - Systems Exam Head: Present: Atraumatic, Normocephalic Pupils: Present: PERRL Extroacular Muscles: Present: EOMI Conjunctiva: Present: Normal Mouth: Present: Moist Mucous Membranes Neck: Present: Normal Range of Motion Respiratory/Chest: Present: Clear to Auscultation, Good Air Exchange. No: Respiratory Distress, Accessory Muscle Use Cardiovascular: Present: Regular Rate and Rhythm, Normal S1, S2. No: Murmurs Abdomen: Present: Normal Bowel Sounds. No: Tenderness, Distention, Peritoneal Signs Back: Present: Normal Inspection Upper Extremity: Present: Normal Inspection. No: Cyanosis, Edema Lower Extremity: Present: Normal Inspection. No: Edema Neurological: Present: GCS=15, CN II-XII Intact, Speech Normal Skin: Present: Warm, Dry, Normal Color. No: Rashes Psychiatric: Present: Alert, Oriented x 3, Normal Insight, Normal Concentration Medical Decision Making ED Course and Treatment: 02/04/17 18:41 Pt in ED for stated history. She was comfortable and in no distress in ED. No tremor was noted. Pt was on her cell phone. Case was DW Dr. Kelsi Arevalo who admitted pt in the Hospital. He states patient was not having withdrawal symptoms when he saw her today. States the plan was to DC her home this evening if she does not have any withdrawal symptoms in the Hospital. Patient however eloped from the Hospital before she was DC because she wanted to go and smoke. He requested that patient be DC home. Pt was mildy hypertension in triage, but reports history of HTN. She have medication and was advised to take her medication as was rx. Advised to f/u with her PMD/ AA. TRT ED for any new or worsening symptoms. Disposition/Present on Arrival - Present on Arrival Any Indicators Present on Arrival: No History of DVT/PE: No History of Uncontrolled Diabetes: No Urinary Catheter: No History of Decub. Ulcer: No History Surgical Site Infection Following: None - Disposition Have Diagnosis and Disposition been Completed?: Yes Diagnosis: Alcohol abuse Disposition: HOME/ ROUTINE Disposition Time: 18:45 Patient Plan: Discharge Condition: STABLE Discharge Instructions (ExitCare): Abuse of Alcohol (ED) Additional Instructions: Follow up with your doctor Return to ED for any new symptoms Referrals: Alcoholics Anonymous [Outside] - Follow up with primary [facility] [place]Outside] - Follow up with primary
== END 2017-02-04 19:02 | disposition home or self-care (01) ==
LOC: ED 17:50
DX: F10.10 Alcohol abuse, uncomplicated (principal)

== ENCOUNTER 2018-04-24 14:41 | Emergency (ER) | payer BC ==
[2018-04-24 14:41] VITALS: BMI 23.0
[2018-04-24 15:00] VITALS: O2SAT 98
[2018-04-24] MEDS ORDERED: Multivitamin (MVI) 10 ML, Thiamine 100 MG, Folic Acid 1 MG in Dextrose 5% In Water 1,00... IV ONE (15:30)
--- NOTE | 2018-04-24 15:35 | ED PDOC ---
Arrival/HPI - General Chief Complaint: Alcohol Ingestion Time Seen by Provider: 04/24/18 15:04 Historian: Patient, EMS EM Caveat: Intoxicated - History of Present Illness Narrative History of Present Illness (Text): 04/24/18 15:31 Pt is a 37 yr old female BIBA after calling for alcohol intoxication x 1 day. Pt was brought in but then changed her mind and tried to leave. Alejandra connell was called and she was brought to [facility]. She continues to threaten to leave but is watched by security. Pt states that she was released from Detox last week but went back to drinking again. Denies tremors, quantity of alcohol, chest pain, sob, loss of consciousness, other substance intake, nausea, vomiting, diarrhea, or any other complaints. Time/Duration: Prior to Arrival Symptom Onset: Sudden Symptom Course: Unchanged Quality: Unable to Describe Severity Level: 1 Activities at Onset: Rest Context: Street Past Medical History - Provider Review Nursing Documentation Reviewed: Yes - Travel History Have you recently traveled outside [place] w/in the past 3 mons?: No - Infectious Disease Hx of Infectious Diseases: None - Cardiac Hx Cardiac Disorders: Yes Hx Hypertension: Yes - Pulmonary Hx Respiratory Disorders: Yes Other/Comment: smoker - Neurological Hx Neurological Disorder: No - HEENT Hx HEENT Disorder: No - Renal Hx Renal Disorder: No - Endocrine/Metabolic Hx Endocrine Disorders: No - Hematological/Oncological Hx Blood Disorders: No - Integumentary Hx Dermatological Disorder: Yes Hx Squamous Cell Carcinoma: Yes - Musculoskeletal/Rheumatological Hx Musculoskeletal Disorders: No - Gastrointestinal Hx Gastrointestinal Disorders: No - Genitourinary/Gynecological Hx Genitourinary Disorders: No - Psychiatric Hx Psychophysiologic Disorder: Yes Hx Anxiety: Yes Hx Panic Disorder: Yes Hx Substance Use: Yes Other/Comment: substance abuse; cocaine - Surgical History Hx Appendectomy: Yes Other/Comment: LEEP, REMOVAL OF SKIN CA - Anesthesia Hx Anesthesia: Yes Hx Anesthesia Reactions: No Family/Social History - Physician Review Nursing Documentation Reviewed: Yes Family/Social History: Unknown Family HX Smoking Status: Current Some Days Smoker Hx Alcohol Use: Yes (last drink at 4am on 02/03/17) Hx Substance Use: Yes Substance used: cocaine Allergies/Home Meds Allergies/Adverse Reactions: Allergies No Known Allergies Allergy (Verified 04/24/18 14:54) Home Medications: Home Meds Medication Instructions Recorded Confirmed ALPRAZolam [Xanax] 1 mg PO BID 02/03/17 04/24/18 Desvenlafaxine Succinate [Pristiq] 50 mg PO DAILY 02/03/17 04/24/18 hydroCHLOROthiazide [Hydrodiuril] 25 mg PO DAILY 02/04/17 04/24/18 Review of Systems - Physician Review All systems were reviewed & negative as marked: Yes - Review of Systems Systems not reviewed;Unavailable: Intoxicated Constitutional: Normal Eyes: Normal ENT: Normal Respiratory: Normal. absent: SOB, Cough Cardiovascular: Normal. absent: Chest Pain, Palpitations Gastrointestinal: Normal. absent: Abdominal Pain, Nausea, Vomiting Genitourinary Female: Normal. absent: Dysuria Musculoskeletal: Normal. absent: Arthralgias Skin: Normal Neurological: Normal. absent: Headache, Dizziness Endocrine: Normal. absent: Diaphoresis Hemo/Lymphatic: Normal Psychiatric: Normal. absent: Anxiety, Depression, Suicidal Ideation, Other Physical Exam - Physical Exam Physical Exam Limitations: Intoxication Vital Signs Reviewed: Yes Vital Signs Temp Pulse Resp BP Pulse Ox 04/24/18 17:12 85 18 128/74 98 04/24/18 14:55 98.3 F 91 H 16 132/93 H 98 Temperature: Afebrile Blood Pressure: Normal Pulse: Regular Respiratory Rate: Normal Appearance: Positive for: Well-Appearing, Non-Toxic, Comfortable Pain Distress: None Mental Status: Positive for: Alert and Oriented X 3 - Systems Exam Head: Present: Atraumatic, Normocephalic Pupils: Present: PERRL Extroacular Muscles: Present: EOMI Conjunctiva: Present: Normal Mouth: Present: Moist Mucous Membranes Neck: Present: Normal Range of Motion Respiratory/Chest: Present: Clear to Auscultation, Good Air Exchange. No: Respiratory Distress, Accessory Muscle Use Cardiovascular: Present: Regular Rate and Rhythm, Normal S1, S2. No: Murmurs Abdomen: Present: Normal Bowel Sounds. No: Tenderness, Distention, Peritoneal Signs Back: Present: Normal Inspection Upper Extremity: Present: Normal Inspection. No: Cyanosis, Edema Lower Extremity: Present: Normal Inspection. No: Edema Neurological: Present: GCS=15, CN II-XII Intact, Speech Normal Skin: Present: Warm, Dry, Normal Color, Other (sunburn). No: Rashes Psychiatric: Present: Alert, Oriented x 3, Normal Insight, Normal Concentration Medical Decision Making ED Course and Treatment: 04/24/18 15:35 Impression Pt is a 37 yr old female BIBA after calling for alcohol intoxication x 1 day. One exam, strong odor of alcohol, A&0x3, aggressive and agitated CIWA score: 0 Plan EtOH and drug levels cmp, cbc and UA banana bag 04/24/18 16:17 Progress note pt became very aggressive and threatening towards staff and had to be restrained Alcohol level: 216 UA positive for leukocyte esterase, whites and nitrates Pt continues to be belligerent to nurses and staff Explained why it is important to monitor her over time however pt states she has librium at home that she can takes if needed Pt's EtOH level should be ~100 by 19:00 and will discharge when friend arrives to utility worker driver her home safely 04/24/18 18:27 Macrobid 100mg po stat and will send home with script x 7 days f/u with PMD Pt left without signing discharge papers or taking macrobid script - Lab Interpretations Lab Results: 04/24/18 16:08 04/24/18 16:08 Lab Results 04/24/18 17:06: Beta HCG, Quant < 2.39 04/24/18 17:06: Urine Opiates Screen Negative, Urine Methadone Screen Negative, Ur Barbiturates Screen Negative, Ur Phencyclidine Scrn Negative, Ur Amphetamines Screen Negative, U Benzodiazepines Scrn Positive H, U Oth Cocaine Metabols Negative, U Cannabinoids Screen Negative 04/24/18 17:06: Urine Color Light yellow, Urine Appearance Sl cloudy, Urine pH 6.0, Ur Specific [place] <= 1.005, Urine Protein Negative, Urine Glucose (UA) 250 H, Urine Ketones Negative, Urine Blood Negative, Urine Nitrate Positive H, Urine Bilirubin Negative, Urine Urobilinogen 0.2, Ur Leukocyte Esterase Trace H , Urine RBC 0 - 2, Urine WBC 2 - 5, Ur Epithelial Cells 6 - 8, Urine Bacteria Many, Urine Other Uyeast 04/24/18 16:08: WBC 10.1 D, RBC 4.29, Hgb 13.0, Hct 37.9, MCV 88.3, MCH 30.3, MCHC 34.3, RDW 13.4, Plt Count 239, MPV 9.2 04/24/18 16:08: Alcohol, Quantitative 216 H 04/24/18 16:08: Sodium 146, Potassium 4.1, Chloride 107, Carbon Dioxide 22, Anion Gap 21 H, BUN 3 L, Creatinine 0.5 L, Est GFR ( Amer) > 60, Est GFR (Non-Af Amer) > 60, Random Glucose 90, Calcium 9.4, Total Bilirubin 0.2, AST 52 H, ALT 47, Alkaline Phosphatase 64, Total Protein 8.0, Albumin 4.7, Globulin 3.3 , Albumin/Globulin Ratio 1.4 - Medication Orders Current Medication Orders: Nitrofurantoin Macrocrystals (Macrobid) 100 mg PO Q12 JOSEE PRN Reason: Protocol Discontinued Medications Multivitamins/Vitamin C 10 ml/Thiamine HCl 100 mg/ Folic Acid 1 mg/ Dextrose 1, 011.2 mls @ 1,000 mls/hr IV .Q1H1M ONE Stop: 04/24/18 16:30 Last Admin: 04/24/18 16:13 Dose: 1,000 mls/hr eMAR Start Stop Document 04/24/18 16:13 [email or web address] (Rec: 04/24/18 16:13 [email or web address] [id number]) Intravenous Solution Start Date 04/24/18 Start Time 16:13 Disposition/Present on Arrival - Present on Arrival Any Indicators Present on Arrival: Yes History of DVT/PE: No History of Uncontrolled Diabetes: No Urinary Catheter: No History of Decub. Ulcer: No History Surgical Site Infection Following: None - Disposition Have Diagnosis and Disposition been Completed?: Yes Diagnosis: Alcohol abuse, UTI (urinary tract infection) Disposition: HOME/ ROUTINE Disposition Time: 18:56 Patient Plan: Discharge Condition: STABLE Discharge Instructions (ExitCare): Urinary Tract Infection, Adult (DC) Additional Instructions: CAYETANO AZAR, thank you for letting us take care of you today. Your provider was Chuck Jack DO and EDNA Cosby and you were treated for ALCOHOL ABUSE AND A URINARY TRACT INFECTION. The emergency medical care you received today was directed at your acute symptoms. If you were prescribed any medication, please fill it and take as directed. It may take several days for your symptoms to resolve. Return to the Emergency Department if your symptoms worsen, do not improve, or if you have any other problems. PLEASE FOLLOW UP WITH YOUR PRIMARY CARE DOCTOR IN NEXT 2 DAYS Please contact your doctor or call one of the physicians/clinics you have been referred to that are listed on the Patient Visit Information form that is included in your discharge packet. Bring any paperwork you were given at discharge with you along with any medications you are taking to your follow up visit. Our treatment cannot replace ongoing medical care by a primary care provider outside of the emergency department. Thank you for allowing the [facility] team to be part of your care today. If you had an X-Ray or CT scan: A Radiologist will review the ED reading if any change in treatment is needed we will contact you. If you had a blood, urine, or wound culture: It will take several days for the results, if any change in treatment is needed we will contact you. Prescriptions: Nitrofurantoin Macrocrystals [Macrobid] 100 mg PO BID 7 Days #14 cap Referrals: PCP,NO [Primary Care Provider] - Follow up with primary Forms: [facility] (Danish)
[2018-04-24 16:27] LABS: MEAN CELL VOLUME 88.3 fl (80.0-105.0); MEAN CORPUSCULAR HEMOGLOBIN 30.3 pg (25.0-35.0); MEAN CORPUSCULAR HGB CONC 34.3 g/dl (31.0-37.0); MEAN PLATELET VOLUME 9.2 fl (7.0-11.0); RBC 4.29 10^6/uL (3.5-6.1); RED CELL DISTRIBUTION WIDTH 13.4 % (11.5-14.5); WHITE BLOOD COUNT 10.1 10^3/ul (4.5-11.0)
[2018-04-24 16:30] LABS: ALB/GLOB RATIO 1.4 (1.1-1.8); ALBUMIN 4.7 g/dL (3.0-4.8); ALT/SGPT 47 U/L (7-56); AST/SGOT 52 U/L (14-36); BLOOD UREA NITROGEN 3 mg/dL (7-21); CALCIUM 9.4 mg/dL (8.4-10.5); GFR AFRICAN-AMERICAN > 60; GFR NON-AFRICAN AMERICAN > 60
[2018-04-24 17:12] VITALS: BP 128/74
[2018-04-24 17:27] LABS: URINE BILIRUBIN NEGATIVE (NEGATIVE); URINE BLOOD NEGATIVE (NEGATIVE); URINE GLUCOSE (UA) 250 mg/dL (NEGATIVE); URINE LEUKOCYTE ESTERASE TRACE Leu/uL (NEGATIVE); URINE PROTEIN NEGATIVE mg/dL (<30 mg/dL); URINE UROBILINOGEN 0.2 E.U./dL (<1 E.U./dL)
[2018-04-24 17:30] LABS: URINE APPEARANCE SL CLOUDY (CLEAR); URINE COLOR LIGHT YELLOW (YELLOW)
[2018-04-24 17:52] LABS: URINE RBC 0 - 2 /hpf (0-2)
[2018-04-24 17:53] LABS: URINE BACTERIA MANY (NEG)
[2018-04-24 17:55] LABS: BARBITURATES, UR NEGATIVE (NEGATIVE); BENZODIAZEPINES, UR POSITIVE (NEGATIVE); OPIATES, UR NEGATIVE (NEGATIVE); PHENCYCLIDINE, UR NEGATIVE (NEGATIVE)
[2018-04-24 19:04] VITALS: PULSE 70; RESP 20; TEMP 98.1
== END 2018-04-24 19:04 | disposition home or self-care (01) ==
LOC: ED 14:41
DX: F10.129 Alcohol abuse with intoxication, unspecified (principal); N39.0 Urinary tract infection, site not specified; I10 Essential (primary) hypertension
CPT/HCPCS: 80053; 81001; 84702; 85027; 96374; 99284; G0480; J3411; J7070